=== PATIENT | male | born 1965 | race Caucasian/White ===

== ENCOUNTER 2016-08-20 18:53 | Inpatient (IN) | payer MEDICAID, OTHER ==
--- NOTE | 2016-08-20 19:47 | C.PDOC ---
History Of Present Illness Patient is a 51 year old male who present to the ER requesting detox from ETOH and heroin. Patient has had a right knee surgery done in the past for a meniscus tear and is complaining of muscle aches. Denies fever, chills, nausea, vomiting or diarrhea. Chief Complaint (Nursing): Substance Abuse History Per: Patient History/Exam Limitations: no limitations Onset/Duration Of Symptoms: Hrs Current Symptoms Are (Timing): Still Present Suicide/Self Injury Attempted (Context): None Modifying Factor(s): Alcohol, Narcotics Associated Symptoms: denies: Depression, Suicidal Thoughts, Suicidal Plan Recent travel outside of the [place]: No Past Medical History Reviewed: Historical Data, Nursing Documentation, Vital Signs Vital Signs: Last Vital Signs Temp 98.1 F 08/20/16 19:01 Pulse 92 H 08/20/16 19:01 Resp 20 08/20/16 19:01 BP 161/89 H 08/20/16 19:01 Pulse Ox 96 08/20/16 20:36 - Medical History PMH: HTN Other Surgeries: Right knee meniscus surgery Family History: States: Unknown Family Hx - Social History Hx Alcohol Use: Yes Hx Substance Use: Yes - Immunization History Hx Influenza Vaccination: Yes Review Of Systems Constitutional: Negative for: Fever, Chills Gastrointestinal: Negative for: Nausea, Vomiting, Diarrhea Musculoskeletal: Positive for: Other (Muscle aches) Physical Exam - Physical Exam Appears: Well, Non-toxic, No Acute Distress Skin: Normal Color, Warm, Dry Head: Atraumatic, Normacephalic Eye(s): bilateral: Normal Inspection, EOMI Oral Mucosa: Moist Chest: Symmetrical, No Tenderness Cardiovascular: Rhythm Regular, No Murmur Respiratory: Normal Breath Sounds, No Rales, No Rhonchi, No Wheezing Gastrointestinal/Abdominal: Soft, No Tenderness Extremity: Swelling (Mild, right knee area) Neurological/Psych: Oriented x3, Normal Speech, Normal Cognition ED Course And Treatment - Laboratory Results Result Diagrams: 08/20/16 20:02 08/20/16 20:02 O2 Sat by Pulse Oximetry: 96 (Room air) Pulse Ox Interpretation: Normal Progress Note: Blood work and urinalysis ordered. Consulted with crisis for availability of detox beds. Disposition Discussed With : Oneyda Cantu Doctor Will See Patient In The: Hospital Counseled Patient/Family Regarding: Diagnosis - Disposition Disposition: HOSPITALIZED Disposition Time: 21:33 Condition: STABLE - POA Present On Arrival: None - Clinical Impression Clinical Impression: Narcotic abuse - Scribe Statement The provider has reviewed the documentation as recorded by the Scribe Jeramie Vincent All medical record entries made by the Scribe were at my direction and personally dictated by me. I have reviewed the chart and agree that the record accurately reflects my personal performance of the history, physical exam, medical decision making, and the department course for this patient. I have also personally directed, reviewed, and agree with the discharge instructions and disposition.
[2016-08-20 20:06] LABS: BASO % 0.5 % (0.0-2.0); EOS % 0.3 % (0.0-4.0); HEMATOCRIT 44.8 % (35.0-51.0); LYMPH # 1.1 K/uL (1.0-4.3); LYMPH % 19.6 % (20.0-40.0); MEAN CELL VOLUME 85.1 fL (80.0-94.0); MEAN CORPUSCULAR HEMOGLOBIN 28.7 pg (27.0-31.0); MEAN CORPUSCULAR HGB CONC 33.7 g/dL (33.0-37.0); MEAN PLATELET VOLUME 7.9 fL (7.2-11.7); MONO # 0.6 K/uL (0.0-0.8); MONO % 10.3 % (0.0-10.0); RED CELL DISTRIBUTION WIDTH 14.3 % (11.5-14.5); WHITE BLOOD COUNT 5.8 K/uL (4.8-10.8)
[2016-08-20 20:09] LABS: RBC URINE 1 /hpf (0-3); URINE BILIRUBIN NEGATIVE (NEGATIVE); URINE BLOOD NEGATIVE (NEGATIVE); URINE GLUCOSE (UA) NORMAL (Normal); URINE KETONE NEGATIVE (NEGATIVE); URINE LEUKOCYTE ESTERASE NEG Leu/uL (Negative); URINE PROTEIN NEGATIVE (NEGATIVE); WBC URINE 1 /hpf (0-5)
[2016-08-20 20:11] LABS: URINE COLOR YELLOW (YELLOW)
[2016-08-20 20:13] LABS: CHLORIDE 99 mmol/L (98-107)
[2016-08-20 20:14] LABS: POTASSIUM 3.7 mmol/L (3.6-5.2); SODIUM 138 mmol/L (132-148)
[2016-08-20 20:16] LABS: ALB/GLOB RATIO 1.5 (1.0-2.1); ALKALINE PHOSPHATASE 74 U/L (38-126); AST/SGOT 72 U/L (17-59); BILIRUBIN,TOTAL 1.3 mg/dL (0.2-1.3); BLOOD UREA NITROGEN 13 mg/dL (9-20); CARBON DIOXIDE 26 mmol/L (22-30); GFR AFRICAN-AMERICAN > 60; TOTAL PROTEIN 7.6 g/dL (6.3-8.3)
[2016-08-20 20:17] LABS: ALCOHOL SERUM 41 mg/dl (0-10); ALT/SGPT 33 U/L (21-72); CALCIUM 8.7 mg/dl (8.6-10.4); GLUCOSE,RANDOM 113 mg/dL (75-110)
[2016-08-20] MEDS ORDERED: Aluminum Hydroxide/Magnesium Hydroxide Susp (30 mL) PO PRN (21:53)
--- NOTE | 2016-08-21 13:17 | PCM.PSYCH ---
Initial Psychiatric Evaluation - Initial Psychiatric Evaluation Type of Admission: Voluntary Legal Status: Capacity Chief Complaint (in patient's own words): "I want to stop drinking" Patient's Reaction to Hospitalization: wants to get clean History of Present Illness and Precipitating Events: Patient is a 51 year old male with PMHx of right torn meniscus who presented voluntarily to get detox for ETOH and heroin. Patient says he started using heroin in 1995. He says he does not know why he started using. He snorts 10-15 bags/day. He denies IV use. Patient reports wanting to detox because he says he is too old for this and wants to see his grand kids grow up. Patient says he has been drink two fifths of vodka every day for 30 years. He has done a detox program before in 1995. Patient lives with his mom in [place] and works in [employer]. Patient has never been in the . [id number]. Patient denies past psychiatric hospitalizations. He plans to do a 1 month rehab program when he leaves. Patient says he feels nauseous and has knots in his stomach. Patient reports diarrhea x2 since admission. Patient says he feels like his whole body is cramped and he cannot move however he is seen sitting up in bed without help. Patient also reports feeling shaky. Patient denies fever, chills, chest pain, SOB, vomiting. Patient uses a cane because he had complications after a surgery for a right torn meniscus. PMHx: right torn meniscus, denies Hep CPast psych history: denies Family psych history: denies Current Medications: Active Medications Generic Name Dose Route Start Last Admin Trade Name Freq PRN Reason Stop Dose Admin Al Hydrox/Mg Hydrox/Simethicone 30 ml 08/20/16 21:53 Maalox 30 Ml PO TID PRN Indigestion / Heartburn Chlordiazepoxide 25 mg 08/21/16 12:00 Librium PO 08/25/16 11:59 Q6 JADE Taper Chlordiazepoxide 25 mg 08/21/16 09:39 Librium PO Q4H PRN Alcohol Withdrawal Clonidine HCl 0.1 mg 08/20/16 21:53 08/20/16 23:37 Catapres PO 0.1 mg Q8 PRN Administration COWS Score More or Equal to 5 Hydroxyzine HCl 50 mg 08/20/16 21:55 Atarax PO Q6H PRN Anxiety Ibuprofen 600 mg 08/20/16 21:55 Motrin Tab PO Q6H PRN Pain, moderate (4-7) Loperamide HCl 2 mg 08/20/16 21:53 Imodium PO Q8 PRN Diarrhea Ondansetron HCl 4 mg 08/20/16 21:53 Zofran Tab PO Q8 PRN Nausea/Vomiting Pneumococcal Polyvalent Vaccine 0.5 ml 08/23/16 10:30 Pneumovax 23 Vaccine IM 08/23/16 10:31 .ONCE ONE Trazodone HCl 100 mg 08/20/16 21:55 08/20/16 23:37 Desyrel PO 100 mg HS PRN Administration Insomnia Past Psychiatric History - Past Psychiatric History Previous Treatment History: Inpatient Pertinent Medical Hx (Current Medical&Sleep Prob, Allergies): Allergies Allergy/AdvReac Type Severity Reaction Status Date / Time No Known Allergies Allergy Verified 08/20/16 19:06 No Known Home Med 08/20/16 Review of Systems - Constitutional Constitutional: Weakness, Malaise. absent: Fever, Chills - EENT Ears: absent: Dizziness - Cardiovascular Cardiovascular: absent: Chest Pain, Palpitations - Respiratory Respiratory: absent: Cough, Dyspnea - Gastrointestinal Gastrointestinal: Abdominal Pain, Diarrhea (twice since admission), Nausea. absent: Constipation, Vomiting - Neurological Additional comments: shakiness Mental Status Examination - Personal Presentation Personal Presentation: Looks stated age - Affect Affect: Broad - Motor Activity Motor Activity: Calm - Reliability in Providing Information Reliability in Providing Information: Good - Speech Speech: Organized Additional comments: slurred secondary to sleepiness per patient - Mood Additional comments: agitated - Formal Thought Process Formal Thought Process: No Impairment - Obsessions/Compulsions Obsessions: No Compulsions: No - Cognitive Functions Orientation: Person, Place, Situation, Time Sensorium: Drowsy Attention/Concentration: Easily distracted (by sleep) Estimate of Intelligence: Average Judgement: Intact, as evidence by: Good judgement Memory: Recent intact, as evidence by: Ability to recall events of the day, Remote intact, as evidenced by: Abilit to recall sig. life events - Risk Risk: Withdrawal - Strength & Assets Inventory Strength & Assets Inventory: Intelligence, Family support, Skills, Life experience DSM 5 DX - DSM 5 DSM 5 Diagnosis: opioid withdrawal opioid use disorder - severe ETOH use disorder - severe - Recommended/Plan of Treatment Treatment Recommendations and Plan of Treatment: Subutex detox Librium taper As needed meds [facility] and CBT Groups Support Projected ELOS: 5 days Prognosis: good Discharge Plan and Discharge Criteria: 1 month rehab program
[2016-08-21] MEDS ORDERED: Buprenorphine Hydrochloride 2 mg SL ONE ×2 (18:15→19:43)
[2016-08-22] MEDS: Buprenorphine Hydrochloride 2 mg SL SCH (09:42)
--- NOTE | 2016-08-22 12:58 | PCM.PYCHPN ---
Psychiatric Progress Note - Psychiatric Progress Note Patient seen today, length of contact: 15 minutes Patient Chief Complaint: "I want to stop drinking" Problems Identified/Issues Discussed: Patient seen and examined, chart reviewed, case discussed with staff. Patient says he feels better than yesterday. Patient had waterry, non bloody diarrhea 7 to 8 times. This is associated with mild abodminal pain. Patient denies nausea and vomiting. Patient slept until 5pm yesterday because he had not slept for 3 days prior to that. Patient says he was not able to sleep through the night at all. Patient says he feels a little anxious. Patient also reports cramping in his legs 4 days of the week for which his primary care doctor, Sr. Valiente in [place], prescribes him a medication but he does not know the name. He says he has the script in his locker. Symptoms are improving but needs more time to stabilize. After care discussed, support and psychoeducation given. NV used briefly. Medication Change: Yes (gabapentin added, seroquel added) Medical Record Reviewed: Yes Mental Status Examination - Cognitive Function Orientation: Person, Place, Situation, Time Memory: Intact - Mood Mood: Neutral - Affect Affect: Broad - Speech Speech: Appropriate - Formal Thought Process Formal Thought Process: No Impairment - Suicidal Ideation Suicidal Ideation: No - Homicidal Ideation Homicidal Ideation: No Goal/Treatment Plan - Goal/Treatment Plan Need for Continued Stay: Discharge may exacerbated symptoms Progress Toward Problem(s) and Goals/Treatment Plan: Subutex detox Librium taper Seroquel for sleep Gabapentin for muscle cramps until he can tell us name of med he takes at home As needed meds [place] and CBT Groups Support Estimated Date of D/C: 08/25/16
[2016-08-23] MEDS ORDERED: Pneumococcal 23-Valent Vaccine IM ONE (10:30)
[2016-08-23] MEDS: Buprenorphine Hydrochloride 2 mg SL SCH (10:49)
--- NOTE | 2016-08-23 14:20 | PCM.PYCHPN ---
Psychiatric Progress Note - Psychiatric Progress Note Patient seen today, length of contact: 15 minutes Patient Chief Complaint: "I want to stop drinking" Problems Identified/Issues Discussed: Patient seen and examined, chart reviewed, case discussed with staff. Patient says he feels better than yesterday. Patient had diarrhea a few times at night. Patient denies nausea and vomiting. Patient was given sleep medication but says he was unable to sleep until 2:30am. Patient says sometimes he goes 2-3 days without sleeping and then will only sleep for 5-6 hours and go another 203 days without sleep. Patient got the script for his leg cramps from his locker yesterday. The medication, cardizem, was ordered for leg cramps. Symptoms are improving but needs more time to stabilize. After care discussed, support and psychoeducation given. MN used briefly. Medication Change: Yes (detox meds change daily) Medical Record Reviewed: Yes Mental Status Examination - Cognitive Function Orientation: Person, Place, Situation, Time Memory: Intact - Mood Mood: Neutral - Affect Affect: Broad - Speech Speech: Appropriate - Formal Thought Process Formal Thought Process: No Impairment - Suicidal Ideation Suicidal Ideation: No - Homicidal Ideation Homicidal Ideation: No Goal/Treatment Plan - Goal/Treatment Plan Need for Continued Stay: Discharge may exacerbated symptoms Progress Toward Problem(s) and Goals/Treatment Plan: Subutex detox Librium taper Seroquel for sleep Gabapentin for muscle cramps until he can tell us name of med he takes at home As needed meds [place] and CBT Groups Support Plan to discharge on Saturday to outpatient [facility]. Estimated Date of D/C: 08/25/16 - Smoking Cessation Smoking Cessation Initiated: No
[2016-08-24] MEDS: Buprenorphine Hydrochloride 2 mg SL SCH (09:52)
--- NOTE | 2016-08-24 13:16 | PCM.PYCHPN ---
Psychiatric Progress Note - Psychiatric Progress Note Patient seen today, length of contact: 16 minutes Patient Chief Complaint: "I feel alright." Problems Identified/Issues Discussed: The pt is seen, chart reviewed, case discussed with staff. This patient is a 51yo male who is here for opioid and alcohol abuse. He states that currently he is feeling alright and denies any withdrawal symptoms except for anxiety which he states keeps him up at night. He denies S/I , H/I, or hallucinations. He states that his medications make him feel uncomfortable and at night he gets the shakes. At the moment, he appears to be calm and relatively comfortable. He says that his plan is to go home to [facility] tomorrow and attend outpatient rehab at [facility] in [place]. The pt is compliant with medications. Symptoms are improving but needs more time to stabilize. After care discussed, support and psychoeducation given. Medication Change: Yes (detox meds change daily) Medical Record Reviewed: Yes Mental Status Examination - Cognitive Function Orientation: Person, Place, Situation, Time Memory: Intact Attention: WNL Concentration: WNL Association: WNL Fund of Knowledge: Poor - Mood Mood: Neutral - Affect Affect: Broad - Speech Speech: Appropriate, Soft - Formal Thought Process Formal Thought Process: No Impairment - Suicidal Ideation Suicidal Ideation: No - Homicidal Ideation Homicidal Ideation: No Goal/Treatment Plan - Goal/Treatment Plan Need for Continued Stay: Discharge may exacerbated symptoms Progress Toward Problem(s) and Goals/Treatment Plan: opioid withdrawal opioid use disorder - severe ETOH use disorder - severe Subutex detox Librium taper As needed meds [place] and CBT Groups Support Estimated Date of D/C: 08/25/16 - Smoking Cessation Smoking Cessation Initiated: No
[2016-08-24 21:08] VITALS: RESP 18; O2SAT 99
[2016-08-25 05:43] VITALS: PULSE 67
[2016-08-25 10:16] VITALS: BP 145/86; TEMP 97.8
--- NOTE | 2016-08-25 17:59 | PCM.PYCHDC ---
Mental Status Examination - Mental Status Examination Orientation: Person, Place, Situation, Time Memory: Intact Mood: Neutral Affect: Other (Appropriate) Speech: Appropriate Attention: WNL Concentration: WNL Association: WNL Fund of Knowledge: WNL Formal Thought Process: No Impairment Description of patient's judgement and insight: Fair Psychotic Thoughts and Behaviors: None Suicidal Ideation: No Current Homicidal Ideation?: No Discharge Summary - Discharge Note Reason for Hospitalization: Alcohol and opiate use disorder Psychiatric History (includes Medical, Family, Personal Hx): Opiate use disorder , alcohol use disorder, cocaine use disorder, cannabis u Laboratory Data: Reviewed Consultations:: List each consultation separately and include: 1. Reason for request. 2. Findings. 3. Follow-up Summary of Hospital Course include:: 1. Description of specific treatment plan utilized for patients during their course of treatmen. 2. Summarize the time- course for resolution of acute symptoms and/or regressed behaviors. 3. Describe issues identified and worked on during hospitalization. 4. Describe medication utilized. 5. Describe medical problems identified and treated. 6. Reassessment of suicide risk Summary of Hospital Course: Patient was admitted for the treatment of opiate and alcohol withdrawal. Patient was started on Subutex and Librium taper. Patient tolerated treatment very well with no adverse affects. With the treatment patient started feeling better. Patient was also started on Neurontin, Seroquel and his home medications for his blood pressure. Gradually patient started feeling much better today patient had no withdrawal symptoms and ready for discharge. At the time of evaluation and discharge, patient was awake alert oriented 3, had no delusions, no auditory or visual hallucinations, no suicidal ideations or homicidal ideations. Patient was discharged in a stable condition. - Final Diagnosis (DSM 5) Condition upon Discharge: STABLE Disposition: HOME/ ROUTINE Prescriptions/Medication Reconciliation: Gabapentin [Neurontin] 100 mg PO TID #90 capsule QUEtiapine [Seroquel] 100 mg PO HS #30 tab - Smoking Cessation Smoking Cessation Medication prescribed: No - Antipsychotic Medications Pt discharged on 2 or more routine antipsychotic medications: No
== END 2016-08-25 10:30 | disposition home or self-care (01) | DRG 745 ==
LOC: C.ER 18:53 → C.7D 21:30
PROVIDERS: ADMIT Psychiatry & Neurology Psychiatry; ATTEND Psychiatry & Neurology Psychiatry
PROC: HZ52ZZZ Individual Psychotherapy for Substance Abuse Treatment, Cognitive-Behavioral (ICD-10-PCS; principal; 2016-08-20)
PROC: HZ2ZZZZ Detoxification Services for Substance Abuse Treatment (ICD-10-PCS; 2016-08-20)
PROC: HZ59ZZZ Individual Psychotherapy for Substance Abuse Treatment, Supportive (ICD-10-PCS; 2016-08-20)
DX: F11.23 Opioid dependence with withdrawal (principal); I10 Essential (primary) hypertension; F10.239 Alcohol dependence with withdrawal, unspecified; F14.90 Cocaine use, unspecified, uncomplicated; F41.9 Anxiety disorder, unspecified